=== PATIENT | female | born 1975 | race Caucasian/White ===

== ENCOUNTER 2020-12-07 09:03 | Emergency (ER) | payer OTHER ==
[2020-12-07 09:44] LABS: BASOPHIL 0.4 % (0-2); EOSINOPHIL 1.6 % (0-5); HCT 47.5 % (37.0-47.0); HGB 15.9 g/dl (12.5-16.0); LYMPHOCYTE 17.2 % (15-48); MCH 29.7 pg (25.0-31.0); MCHC 33.5 g/dL (32.0-36.0); MCV 88.6 fL (78.0-100.0); MONOCYTE 6.5 % (0-12); MPV 9.3 fL (6.0-9.5); NEUTROPHIL 73.7 % (41-80); NRBC 0; PLT 366 K/uL (150-400); RBC 5.36 M/uL (4.20-5.40); RDW 12.3 % (11.5-14.0)
[2020-12-07 09:59] LABS: PTT 26.5 SECONDS (22.2-34.7)
[2020-12-07 10:00] LABS: D-DIMER < 0.27 ug/mLFEU (0.00-0.41)
[2020-12-07 10:06] LABS: ALBUMIN 3.9 g/dL (3.4-5.0); BILIRUBIN - TOTAL 0.5 mg/dL (0.2-1.0); BUN/CREAT RATIO (CALC) 13.6 RATIO; CREATININE 0.81 mg/dL (0.51-0.95); GLOBULIN (CALCULATION) 3.2 g/dL; MAGNESIUM 1.8 mg/dL (1.8-2.4); POTASSIUM 4.5 mmol/L (3.5-5.1); TOTAL PROTEIN 7.1 g/dL (6.4-8.2)
[2020-12-07 10:07] LABS: INR 1.06 (0.9-1.2); PROTHROMBIN TIME 13.1 SECONDS (11.4-13.6)
[2020-12-07 10:10] LABS: LACTIC ACID 2.2 mmol/L (0.4-1.9)
[2020-12-07 10:26] LABS: BILIRUBIN NEGATIVE (NEGATIVE); BLOOD TRACE-INTACT Ery/uL (NEGATIVE); CLARITY CLEAR (CLEAR); COLOR YELLOW (YELLOW); GLUCOSE (U) TRACE mg/dL (NORMAL); LEUKOCYTES 1+ Leu/uL (NEGATIVE); NITRITE NEGATIVE (NEGATIVE); PROTEIN 1+ mg/dL (NEGATIVE); SPECIFIC GRAVITY 1.025 (1.001-1.030); UROBILINOGEN 0.2 mg/dL (0.2-1.0)
[2020-12-07 10:47] LABS: BACTERIA 2+
[2020-12-07 10:48] LABS: GRANULAR CASTS TRACE; MUCOUS MODERATE
[2020-12-07] MEDS ORDERED: CEPHALEXIN500 MG PO (12:54)
== END 2020-12-07 13:32 | disposition home or self-care (01) ==
LOC: FER 09:03
PROVIDERS: Emergency Medicine
DX: N39.0 Urinary tract infection, site not specified (principal); R55 Syncope and collapse; H73.891 Other specified disorders of tympanic membrane, right ear; R07.1 Chest pain on breathing; R06.02 Shortness of breath; R42 Dizziness and giddiness; E11.9 Type 2 diabetes mellitus without complications; I10 Essential (primary) hypertension; Z20.822 Contact with and (suspected) exposure to COVID-19
CPT/HCPCS: 36415; 70450; 71045; 80053; 81001; 83605; 83735; 84484; 85025; 85379; 85610; 85730; 87040; 87088; 93005; J0696; U0002

== ENCOUNTER 2021-05-05 09:01 | Emergency (ER) | payer OTHER ==
[~2021-05-05 09:01] MED LIST: CEPHALEXIN500 MG PO
[2021-05-05] MEDS ORDERED: MOBIC7.5 MG PO (10:24)
== END 2021-05-05 11:03 | disposition home or self-care (01) ==
LOC: FER 09:01
DX: M25.562 Pain in left knee (principal); M54.32 Sciatica, left side; I10 Essential (primary) hypertension; E11.638 Type 2 diabetes mellitus with other oral complications; F17.210 Nicotine dependence, cigarettes, uncomplicated; Z88.8 Allergy status to other drugs, medicaments and biological substances; W19.XXXA Unspecified fall, initial encounter; W22.8XXA Striking against or struck by other objects, initial encounter; Y92.009 Unspecified place in unspecified non-institutional (private) residence as the place of occurrence of the external cause
CPT/HCPCS: 73502; 73560; 73610